=== PATIENT | male | born 1995 | race Caucasian/White ===

== ENCOUNTER 2020-02-14 16:06 | Emergency (ER) | payer BC, SELFPAY ==
[2020-02-14 16:10] VITALS: BP 136/76; PULSE 66; RESP 17; TEMP 37.2; O2SAT 100
--- NOTE | 2020-02-14 16:12 | ED.HA ---
HPI - Headache General Chief Complaint: Headache <HOLGER Lund Last Filed: 02/14/20 17:24> Stated Complaint: headache <HOLGER Lund Last Filed: 02/14/20 17:24> Time Seen by Provider: 02/14/20 16:08 <HOLGER Lund Last Filed: 02/14/20 17:24> Source: patient <HOLGER Lund Last Filed: 02/14/20 17:24> Mode of arrival: ambulatory <HOLGER Lund Last Filed: 02/14/20 17:24> Limitations: no limitations <HOLGER Lund Last Filed: 02/14/20 17:24> History of Present Illness HPI Narrative: A 24 y/o male pt presents to the ED, with c/o migraine that began 3 hours ago. Pt states he has a hx of migraines and that this is similar to migraines he's had in the past. He states that he took Excedrin prior to arrival to the ED. Pt notes pain to his occipital region, visual changes (resolved), numbness to bilateral hands and cheek (resolved), and intermittent CP that is not present in the ED bed. He denies emesis, ABD pain, cough, sore throat, congestion, or SOB. Pt denies hitting his head or any recent injuries. He denies any significant PMHx, but notes having surgery on his intestines d/t a tear. Pt denies substance use, but notes a vaping hx and occassional alcohol use. <HOLGER Lund Last Filed: 02/14/20 17:24> MD elicited complaint: migraine <HOLGER Lund Last Filed: 02/14/20 17:24> Pertinent past history: migraines <HOLGER Lund Last Filed: 02/14/20 17:24> Onset (ago): hour(s) (3) <HOLGER Lund Last Filed: 02/14/20 17:24> Time: 13:00 <HOLGER Lund Last Filed: 02/14/20 17:24> Location: occipital <HOLGER Lund Last Filed: 02/14/20 17:24> Associated symptoms: numbness (to bilateral hands, cheek, now resolved), chest pain (chronic, intermittent) and other (visual changes (resolved)) <Lucas Benavides PA-C - Last Filed: 02/14/20 17:24> Treatments prior to arrival: migraine medication (Excedrin) <Lucas Benavides PA-C - Last Filed: 02/14/20 17:24> Related Data Allergies/Adverse Reactions: Allergies Allergy/AdvReac Type Severity Reaction Status Date / Time No Known Allergies Allergy Verified 02/14/20 16:34 <Lucas Benavides PA-C - Last Filed: 02/14/20 17:24> Review of Systems Review of Systems: All systems reviewed & are unremarkable except as noted in HPI and below <Lucas Benavides PA-C - Last Filed: 02/14/20 17:24> Constitutional: Constitutional: Reports headache(s) (Migraine, pain to occipital region) <Lucas Benavides PA-C - Last Filed: 02/14/20 17:24> ENT: Denies nasal congestion and Denies sore throat <Lucas Benavides PA-C - Last Filed: 02/14/20 17:24> Cardiovascular: Cardiovascular: Reports chest pain (intermittent, not present in the ED bed) <Lucas Benavides PA-C - Last Filed: 02/14/20 17:24> Respiratory: Respiratory: Denies cough and Denies dyspnea <Lucas Benavides PA-C - Last Filed: 02/14/20 17:24> Gastrointestinal: Gastrointestinal: Denies abdominal pain and Denies vomiting <Lucas Benavides PA-C - Last Filed: 02/14/20 17:24> Neurologic: Reports numbness (bilateral hands, cheek, now resolved) and Reports other (change in vision, now resolved) <Lucas Benavides PA-C - Last Filed: 02/14/20 17:24> PMF Past Medical History Medical History: Medical History (Updated 02/14/20 @ 16:29 by Lucas Benavides PA-C) Migraine headache <Lucas Benavides PA-C - Last Filed: 02/14/20 17:24> Surgical History Surgical History: Surgical History (Updated 02/14/20 @ 16:33 by JUS Levin) History of intestinal surgery <Lucas Benavides PA-C - Last Filed: 02/14/20 17:24> Social History Social History: Social History (Updated 02/14/20 @ 16:34 by JUS Levin) Smoking status: Current every day smoker Tobacco type: e-cigarettes Substance use: nev
[2020-02-14] MEDS: SODIUM CHLORIDE 0.9% IV 1,000 ML 999 ML IV CONT (16:36)
[2020-02-14] MEDS: KETOROLAC 30 MG/ML VIAL (*BKC) IV PUSH (16:36)
[2020-02-14] MEDS: METOCLOPRAMIDE HCL INJ 10 MG/2 ML VIAL IV PUSH (16:36)
[2020-02-14 16:38] VITALS: BP 150/93; PULSE 76; RESP 20; O2SAT 99
[2020-02-14 17:37] VITALS: BP 133/72; PULSE 67; RESP 17; O2SAT 100
== END 2020-02-14 17:38 | disposition home or self-care (01) ==
PROVIDERS: Emergency Provider Emergency Medicine
DX: R51 Headache (principal); F17.290 Nicotine dependence, other tobacco product, uncomplicated
CPT/HCPCS: 96361; 96374; 96375; 99284; J1200; J1885; J2765; J7030